=== PATIENT | male | born 1945 | race American Indian/Alaskan Native ===

== ENCOUNTER 2019-01-03 09:04 | Inpatient (IN) | payer MEDICARE ==
[2019-01-03 10:00] LABS: Eosinophils % (Auto) 0.4 % (0.0-4.3); Hematocrit 37.4 % (35.5-45.6); Hemoglobin 12.2 gm/dl (11.8-15.2); Lymphocytes # (Auto) 0.7 K/mm3 (1.2-5.4); Lymphocytes % (Auto) 20.5 % (13.4-35.0); Mean Corpuscular HGB Conc 33 % (32-34); Mean Corpuscular Volume 93 fl (84-94); Monocytes # (Auto) 0.3 K/mm3 (0.0-0.8); Monocytes % (Auto) 7.7 % (0.0-7.3); Platelet Count 224 K/mm3 (140-440); Red Blood Count 4.01 M/mm3 (3.65-5.03); Red Cell Distribution Width 18.2 % (13.2-15.2)
[2019-01-03 10:31] LABS: Alanine Aminotransferase 8 units/L (7-56); Albumin 3.9 g/dL (3.9-5); BUN/Creatinine Ratio 12; Blood Urea Nitrogen 21 mg/dL (9-20); Calcium 9.3 mg/dL (8.4-10.2); Hemolysis Index 0
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
--- NOTE | 2019-01-03 13:07 | Cat Scan Report ---
CT head without contrast INDICATION : weakness. Dizziness weakness. TECHNIQUE: Axial imaging performed from the skull apex through the skull base without the use of con trast. All CT scans at this location are performed using CT dose reduction for ALARA by means of aut omated exposure control. COMPARISON: None FINDINGS: Parenchyma: Bilateral basal ganglia chronic lacunar infarcts. No suspicious hypodensities. No mass o r mass effect. No hemorrhage. Ventricles: Ventricles are normal in size for age and appear symmetric. Soft tissues: Soft tissues including the orbits appear normal. Bones: No acute osseous abnormality. Sinuses: Sinuses and mastoid air cells are clear. IMPRESSION: No acute change. Chronic bilateral basal ganglia lacunar infarcts. Signer Name: Kwasi Cohen MD Signed: 01/03/2019 1:03 PM Workstation Name: [id number]
[2019-01-03 13:58] LABS: Bacteria,Urine 1+ /HPF (Negative); Bilirubin,Urine NEG (Negative); Blood,Urine NEG (Negative); Color,Urine Yellow (Yellow); Mucus,Urine FEW /HPF; RBC,Urine < 1.0 /HPF (0.0-6.0); Urobilinogen,Urine < 2.0 mg/dL (<2.0); WBC,Urine < 1.0 /HPF (0.0-6.0)
--- NOTE | 2019-01-03 18:30 | History and Physical Report ---
History of Present Illness Chief complaint: He just keeps getting weak History of present illness: 73 YO Male with CaP presents to ED for evaluation. Pt states that he was in his usual state of health and was driving his car and experienced an acute onset of blurred vision, dizziness, inability to focus, and inability to speak. Pt states that symptoms gradually improved and after several hours he felt better, but do es not feel normal. Pt transported to [facility] via private vehicle. Pt seen and evaluated in ED and found to have symptoms consistent with CVA. Pt is outside therapeutic window for TPA at time of my evaluation. Pt admitted to [facility] unit and initiated on CVA protocol. Neurology consulted. Pt denies fever, chills, CP, Palpitations, NVD, Trauma, productive cough, skin rash, recent ill contacts, vertigo, loss of bowel or bladder continence. No prior admission for review. All listed medication reconciled at time of admission. Past History Past Medical History: cancer Past Surgical History: No surgical history, Other (reviewed) Social history: . denies: smoking, alcohol abuse, prescription drug abuse Family history: no significant family history (reviewed) Medications and Allergies Allergies Allergy/AdvReac Type Severity Reaction Status Date / Time No Known Allergies Allergy Verified 01/03/19 09:09 Home Medications Medication Instructions Recorded Confirmed Last Taken Type Folic Acid [Folvite] 1 mg PO QDAY 01/03/19 01/03/19 01/03/19 History Furosemide [Lasix TAB] 40 mg PO QDAY 01/03/19 01/03/19 01/03/19 History Lisinopril [Zestril TAB] 40 mg PO QDAY 01/03/19 01/03/19 01/03/19 History NIFEdipine [Nifedipine ER] 60 mg PO QDAY 01/03/19 01/03/19 01/03/19 History Review of Systems Constitutional: no weight loss, no weight gain, no fever, no chills Ears, nose, mouth and throat: no ear pain, no ear discharge, no tinnitis, no decreased hearing, no nose pain, no nasal congestion, no nasal discharge Cardiovascular: no chest pain, no orthopnea, no palpitations, no rapid/irregular heart beat, no edema, no syncope Respiratory: no cough, no cough with sputum, no excessive sputum, no hemoptysis, no shortness of breath Gastrointestinal: no abdominal pain, no nausea, no vomiting, no diarrhea, no constipation, no change in bowel habits Genitourinary Male: no dysuria, no hematuria, no flank pain, no discharge, no urinary frequency, no urinary hesitancy, no nocturia, no incontinence Rectal: no pain, no incontinence, no bleeding Musculoskeletal: no neck stiffness, no neck pain, no shooting arm pain, no arm numbness/tingling, no low back pain, no leg numbness/tingling Integumentary: no rash, no pruritis, no redness, no sores, no wounds, no jaundice Neurological: no head injury, no transient paralysis, no paralysis, no weakness, no parathesias, no tingling, no seizures Psychiatric: no anxiety, no memory loss, no change in sleep habits, no sleep disturbances, no insomnia, no hypersomnia, no change in appetite, no change in libido Endocrine: no cold intolerance, no heat intolerance, no polyphagia, no excessive thirst, no polydipsia, no polyuria, no nocturia Hematologic/Lymphatic: no easy bruising, no easy bleeding Allergic/Immunologic: no urticaria, no allergic rhinitis, no wheezing Exam - Constitutional Vitals: Temp Pulse Resp BP Pulse Ox 97.8 F 93 H 16 128/74 98 01/03/19 09:15 01/03/19 09:15 01/03/19 09:15 01/03/19 09:15 01/03/19 09:15 General appearance: Present: mild distress - EENT Eyes: Present: PERRL ENT: hearing intact, clear oral mucosa - Neck Neck: Present: supple, normal ROM - Respiratory Respiratory effort: normal Respiratory: bilateral: CTA - Cardiovascular Heart Sounds: Present: S1 & S2. Absent: rub, click - Extremities Extremities: pulses symmetrical, No edema Peripheral Pulses: within normal limits - Abdominal General gastrointestinal: Present: soft, non-tender, non-distended, normal bowel sounds Male genitourinary: Present: normal - Integumentary Integumentary: Present: clear, warm, dry - Musculoskeletal Musculoskeletal: gait normal, strength equal bilaterally - Psychiatric Psychiatric: appropriate mood/affect, intact judgment & insight - Neurologic Neurologic: CNII-XII intact, moves all extremities Results - Labs CBC & Chem 7: 01/03/19 09:21 01/03/19 09:21 Labs: Abnormal lab results 01/03/19 01/03/19 Range/Units 09:21 09:21 WBC 3.5 L (4.5-11.0) K/mm3 RDW 18.2 H (13.2-15.2) % [place] % (Auto) 7.7 H (0.0-7.3) % Lymph # 0.7 L (1.2-5.4) K/mm3 Seg Neutrophils % 70.4 H (40.0-70.0) % Potassium 3.5 L (3.6-5.0) mmol/L Chloride 96.4 L (98-107) mmol/L BUN 21 H (9-20) mg/dL Creatinine 1.8 H (0.8-1.5) mg/dL Glucose 127 H (75-100) mg/dL Total Protein 8.9 H (6.3-8.2) g/dL Assessment and Plan - Patient Problems (1) CVA (cerebral vascular accident) Current Visit: Yes Status: Acute Qualifiers: Laterality of affected vessel: unspecified Plan to address problem: Stroke protocol: CT head, Carotid doppler, Echo, PT/OT/Speech therapy, lipid panel, statin therapy, swallow evaluation, anitplatelet therapy. (2) PARISA (acute kidney injury) Current Visit: Yes Status: Acute Plan to address problem: IVF resuscitation therapy, monitor uop q shift, supplemental oxygen, nephrology consulted in ED, avoid nephrotoxic agents. (3) DVT prophylaxis Current Visit: Yes Status: Acute Plan to address problem: SCD to BLE while in bed, Pt ambulatory
[2019-01-03] MEDS ORDERED: ZOFRAN IV PRN (18:40)
[2019-01-03] MEDS ORDERED: PHENERGAN PR PRN (18:40)
[2019-01-03] MEDS ORDERED: PROVENTIL IH PRN (18:40)
[2019-01-03] MEDS ORDERED: SODIUM CHLORIDE FLUSH SYRINGE 10 ML IV PRN (18:40)
[2019-01-03] MEDS ORDERED: TYLENOL PO PRN (18:40)
[2019-01-03] MEDS ORDERED: REGLAN PO PRN (18:40)
[2019-01-03] MEDS ORDERED: DULCOLAX PR PRN (18:40)
[2019-01-03] MEDS ORDERED: MILK OF MAGNESIA PO PRN (18:40)
[2019-01-03 21:42] LABS: Free T4 (Free Thyroxine) 1.07 ng/dL (0.76-1.46)
[2019-01-04 06:23] LABS: Chol/HDL Ratio 1.7 %
[2019-01-04] MEDS ORDERED: K-DUR PO NR ×3 (08:36→18:00)
[2019-01-04] MEDS ORDERED: FOLVITE PO SCH (10:00)
[2019-01-04] MEDS ORDERED: ASPIRIN PO SCH (10:00)
[2019-01-04] MEDS ORDERED: LASIX PO SCH (10:00)
[2019-01-04 10:50] VITALS: BP 154/93
[2019-01-04 10:55] LABS: BUN/Creatinine Ratio 12; Blood Urea Nitrogen 15 mg/dL (9-20); Calcium 8.9 mg/dL (8.4-10.2); Hemolysis Index 4
--- NOTE | 2019-01-04 11:17 | Discharge Summary ---
Providers - Providers Date of Admission: 01/03/19 18:40 Attending physician: SAADIA JAIME MD 01/03/19 18:40 Occupational Therapy Evaluate and Treat [CONS] Routine Comment: Reason For Exam: Neuro deficits Physical Therapy Evaluation and Treat [CONS] Routine Comment: Reason For Exam: Neuro deficits 01/03/19 18:41 Speech Therapy Evaluation and Treat [CONS] Routine Reason For Exam: swallow eval 01/03/19 20:31 Consult to Physician [CONS] Routine Comment: REJI Consulting Provider: PAO CARRION Physician Instructions: WAS NOTIFIED. Reason For Exam: cva 01/03/19 20:43 Consult to Physician [CONS] Routine Comment: REJI Consulting Provider: MIKE CAVAZOS Physician Instructions: WAS NOTIFIED. Reason For Exam: PARISA Primary care physician: [employer] Hospitalization Reason for admission: CVA Condition: Stable Hospital course: 73 YO Male with CaP presents to ED for evaluation. Pt states that he was in his usual state of health and was driving his car and experienced an acute onset of blurred vision, dizziness, inability to focus, and inability to speak. Pt states that symptoms gradually improved and after several hours he felt better, but does not feel normal. Pt transported to [facility] via private vehicle. Pt seen and evaluated in ED and found to have symptoms consistent with CVA. Pt is outside therapeutic window for TPA at time of my evaluation. Pt admitted to [facility] unit and initiated on CVA protocol. Neurology consulted. Pt denies fever, chills, CP, Palpitations, NVD, Trauma, productive cough, skin rash, recent ill contacts, vertigo, loss of bowel or bladder continence. No prior admission for review. All listed medication reconciled at time of admission. * Reviewed CT head with Neurology, Brain atrophy appropriate for age and few Chronic lacunar infarcts noted. Possible a subacute thalamic CVA also noted * ASA AND STATIN Started on the patient, family and patient advised * Patient with severe PTSD per spouse, now seeing a psychiatrist. * Renal function improved down to baseline. - Patient Problems (1) CVA (cerebral vascular accident) (2) PARISA (acute kidney injury) Secondary to vasomotor nephropathy (3) Hypokalemia- Replace (4) Transient Global Amnesia-Resolved Disposition: DC/TX-06 HOME UNDER HOME HL[facility] Time spent for discharge: 35 MINS Core Measure Documentation - Palliative Care Palliative Care/ Comfort Measures: Not Applicable - Core Measures Any of the following diagnoses?: none - Stroke Discharge Requirements Statin for LDL = or >70 mg/dl on DC: Yes Anticoag for atrial fib/atrial flutter: Not Applicable Antithrombotic for ischemic stroke: Yes Exam - Constitutional Vitals: Temp Pulse Resp BP Pulse Ox 97.8 F 70 20 154/93 98 01/04/19 08:19 01/04/19 08:45 01/04/19 08:19 01/04/19 08:45 01/04/19 08:45 General appearance: Present: no acute distress, well-nourished, other (ANXIOUS) - EENT Eyes: Present: PERRL, EOM intact ENT: hearing intact, other (MISSING DENTITION) - Neck Neck: Present: supple, normal ROM - Respiratory Respiratory effort: normal Respiratory: bilateral: CTA - Cardiovascular Rhythm: regular Heart Sounds: Present: S1 & S2. Absent: systolic murmur, diastolic murmur - Extremities Extremities: no ischemia, pulses intact, pulses symmetrical, No edema, normal temperature, normal color, Full ROM Peripheral Pulses: within normal limits - Abdominal General gastrointestinal: Present: soft, non-tender, non-distended, normal bowel sounds - Integumentary Integumentary: Present: clear, warm - Musculoskeletal Musculoskeletal: strength equal bilaterally - Psychiatric Psychiatric: appropriate mood/affect - Neurologic Neurologic: CNII-XII intact, moves all extremities - Allied Health Allied health notes reviewed: nursing Plan Activity: advance as tolerated, fall precautions Diet: low cholesterol Special Instructions: record daily BP diary Care Plan Goals: Encouraged to follow with PCP and also [facility]. Continue to follow with Pyschiatry Follow up with: ANNMARIE CALVILLO MD [Primary Care Provider] - 3-5 Days PAO CARRION MD [Staff Physician] - 7 Days Prescriptions: AtorvaSTATin [Lipitor] 40 mg PO QHS #30 tablet Aspirin 325 mg PO QDAY #30 tablet
--- NOTE | 2019-01-04 11:18 | Consultation ---
History of Present Illness Consult date: 01/04/19 History of present illness: patient seen and evaluated he clearly had episode of TGA transient global amnesia and he is hypertensive and has high lipid there is also panic disorder from ptsd CT multi small lacunar infarcts Past History Past Medical History: cancer Past Surgical History: No surgical history, Other (reviewed) Social history: . denies: smoking, alcohol abuse, prescription drug abuse Family history: no significant family history (reviewed) Medications and Allergies Allergies Allergy/AdvReac Type Severity Reaction Status Date / Time No Known Allergies Allergy Verified 01/03/19 09:09 Home Medications Medication Instructions Recorded Confirmed Last Taken Type Folic Acid [Folvite] 1 mg PO QDAY 01/03/19 01/03/19 01/03/19 History Furosemide [Lasix TAB] 40 mg PO QDAY 01/03/19 01/03/19 01/03/19 History Lisinopril [Zestril TAB] 40 mg PO QDAY 01/03/19 01/03/19 01/03/19 History NIFEdipine [Nifedipine ER] 60 mg PO QDAY 01/03/19 01/03/19 01/03/19 History Active Meds: Active Medications Acetaminophen (Tylenol) 650 mg PO Q4H PRN PRN Reason: Pain, Mild (1-3) Albuterol (Proventil) 2.5 mg IH Q3HRT PRN PRN Reason: Shortness Of Breath Aspirin (Aspirin) 325 mg PO QDAY [facility] Last Admin: 01/04/19 10:50 Dose: 325 mg Documented by: Atorvastatin Calcium (Lipitor) 40 mg PO QHS [facility] Last Admin: 01/03/19 22:05 Dose: 40 mg Documented by: Bisacodyl (Dulcolax) 10 mg [place] QDAY PRN PRN Reason: Constipation Folic Acid (Folvite) 1 mg PO QDAY [facility] Last Admin: 01/04/19 10:50 Dose: 1 mg Documented by: Furosemide (Lasix) 40 mg PO QDAY [facility] Last Admin: 01/04/19 10:49 Dose: 40 mg Documented by: Magnesium Sulfate 1 gm/ Sodium (Chloride) 52 mls @ 52 mls/hr IV ONCE ONE Stop: 01/04/19 11:58 Magnesium Hydroxide (Milk Of Magnesia) 30 ml PO Q4H PRN PRN Reason: Constipation Metoclopramide HCl (Reglan) 5 mg PO Q6H PRN PRN Reason: Nausea And Vomiting Ondansetron HCl (Zofran) 4 mg IV Q8H PRN PRN Reason: Nausea And Vomiting Potassium Chloride (K-Dur) 40 meq PO ONCE ONE Stop: 01/04/19 11:00 Promethazine HCl (Phenergan) 25 mg [place] Q6H PRN PRN Reason: Nausea And Vomiting Sodium Chloride (Sodium Chloride Flush Syringe 10 Ml) 10 ml IV PRN PRN PRN Reason: LINE FLUSH Physical Examination - Vital Signs Vital Signs: Vital Signs Temp Pulse Resp BP Pulse Ox 97.8 F 93 H 16 128/74 98 01/03/19 09:15 01/03/19 09:15 01/03/19 09:15 01/03/19 09:15 01/03/19 09:15 Results - Laboratory Findings CBC and BMP: 01/03/19 09:21 01/04/19 10:16 Abnormal Lab Findings: Abnormal Labs 01/03/19 01/03/19 01/04/19 09:21 09:21 04:54 WBC 3.5 L RDW 18.2 H [place] % (Auto) 7.7 H Lymph # 0.7 L Seg Neutrophils % 70.4 H Potassium 3.5 L Chloride 96.4 L BUN 21 H Creatinine 1.8 H Glucose 127 H Magnesium Total Protein 8.9 H HDL Cholesterol 111 H 01/04/19 01/04/19 10:16 10:16 WBC RDW [place] % (Auto) Lymph # Seg Neutrophils % Potassium 3.4 L Chloride BUN Creatinine Glucose Magnesium 1.50 L Total Protein HDL Cholesterol
[2019-01-04] MEDS ORDERED: MAGNESIUM SULFATE 1 GM in NACL 0.9% 50 ML IV ONE (11:30)
--- NOTE | 2019-01-04 11:42 | Consultation ---
History of Present Illness - Reason for Consult Consult date: 01/11/19 acute renal failure, hypokalemia - History of Present Illness The patient is a 73 YO male with history significant for Hypertension, Ca Prostate, HLD, PTSD and Etoh abuse who presented to [facility] ED yesterday with c/o transient global amnesia. Pt states that he was driving his car and experienced an acute onset of dizziness, blurred vision, inability to focus, and difficulty in speaking. His symptoms gradually improved but not completely back to normal. Pt also reports 3 weeks h/o decreased appetite, poor PO intake and 10-15 lbs weight loss. He denies N, V, D, abd pain, CP, sob, fever, chills, rash, leg swelling or syncope. He was admitted with suspected CVA / TIA. Creatinine was 1.8 on admission. Nephrology was consulted for further evaluation. Past History Past Medical History: cancer, hypertension, hyperlipidemia, other (Etoh abuse) Past Surgical History: No surgical history, Other (reviewed) Social history: . denies: smoking, alcohol abuse, prescription drug abuse Family history: no significant family history (reviewed) Medications and Allergies Allergies Allergy/AdvReac Type Severity Reaction Status Date / Time No Known Allergies Allergy Verified 01/03/19 09:09 Home Medications Medication Instructions Recorded Confirmed Last Taken Type Folic Acid [Folvite] 1 mg PO QDAY 01/03/19 01/03/19 01/03/19 History Furosemide [Lasix TAB] 40 mg PO QDAY 01/03/19 01/03/19 01/03/19 History Lisinopril [Zestril TAB] 40 mg PO QDAY 01/03/19 01/03/19 01/03/19 History NIFEdipine [Nifedipine ER] 60 mg PO QDAY 01/03/19 01/03/19 01/03/19 History Aspirin 325 mg PO QDAY #30 tablet 01/04/19 Unknown Rx AtorvaSTATin [Lipitor] 40 mg PO QHS #30 tablet 01/04/19 Unknown Rx Active Meds: Active Medications Acetaminophen (Tylenol) 650 mg PO Q4H PRN PRN Reason: Pain, Mild (1-3) Albuterol (Proventil) 2.5 mg IH Q3HRT PRN PRN Reason: Shortness Of Breath Aspirin (Aspirin) 325 mg PO QDAY [facility] Last Admin: 01/04/19 10:50 Dose: 325 mg Documented by: Atorvastatin Calcium (Lipitor) 40 mg PO QHS [facility] Last Admin: 01/03/19 22:05 Dose: 40 mg Documented by: Bisacodyl (Dulcolax) 10 mg [place] QDAY PRN PRN Reason: Constipation Folic Acid (Folvite) 1 mg PO QDAY [facility] Last Admin: 01/04/19 10:50 Dose: 1 mg Documented by: Furosemide (Lasix) 40 mg PO QDAY [facility] Last Admin: 01/04/19 10:49 Dose: 40 mg Documented by: Magnesium Sulfate 1 gm/ Sodium (Chloride) 52 mls @ 52 mls/hr IV ONCE ONE Stop: 01/04/19 12:29 Magnesium Hydroxide (Milk Of Magnesia) 30 ml PO Q4H PRN PRN Reason: Constipation Metoclopramide HCl (Reglan) 5 mg PO Q6H PRN PRN Reason: Nausea And Vomiting Ondansetron HCl (Zofran) 4 mg IV Q8H PRN PRN Reason: Nausea And Vomiting Potassium Chloride (K-Dur) 40 meq PO ONCE NR Stop: 01/04/19 16:00 Promethazine HCl (Phenergan) 25 mg [place] Q6H PRN PRN Reason: Nausea And Vomiting Sodium Chloride (Sodium Chloride Flush Syringe 10 Ml) 10 ml IV PRN PRN PRN Reason: LINE FLUSH Review of Systems Constitutional: weight loss, anorexia, poor appetite, no weight gain, no fever, no chills, no weakness Cardiovascular: lightheadedness, high blood pressure, no chest pain, no orthopnea, no edema, no syncope, no shortness of breath, no leg edema, no decreased exercise tolerance Respiratory: no cough, no hemoptysis, no shortness of breath, no dyspnea on exertion, no sleep apnea, no home oxygen Gastrointestinal: no abdominal pain, no nausea, no vomiting, no diarrhea, no melena, no hematochezia Genitourinary Male: no dysuria, no hematuria Rectal: no bleeding Integumentary: no rash, no wounds Neurological: change in speech, change in mentation, memory loss, no paralysis Psychiatric: memory loss Exam - Vital Signs Vital signs: Vital Signs Temp Pulse Resp BP Pulse Ox 97.8 F 93 H 16 128/74 98 01/03/19 09:15 01/03/19 09:15 01/03/19 09:15 01/03/19 09:15 01/03/19 09:15 - General Appearance General appearance: well-developed, well-nourished, appears stated age, other (not in distress) EENT: ATNC, PERRL, mucous membranes moist, hearing intact, vision intact Neck: Present: neck supple, trachea midline Respiratory: Clear to Ascultation Heart: regular, S1S2, no murmurs Gastrointestinal: Present: normoactive bowel sounds. Absent: tenderness, distended Integumentary: no rash, warm and dry Neurologic: no focal deficit, no asterixis, alert and oriented x3 Musculoskeletal: Present: other (no edema) Psychiatric: cooperative Results - Lab Results 01/03/19 09:21 01/04/19 10:16 Most recent lab results Calcium 8.9 mg/dL (8.4-10.2) 01/04/19 10:16 Magnesium 1.50 mg/dL (1.7-2.3) L 01/04/19 10:16 Assessment and Plan 1. Acute kidney injury: Likley Vasomotor PARISA in the setting of volume depletion. Renal function is better. Baseline renal function is unknown. Encouraged PO fluids. Monitor renal function. Avoid nephrotoxic agents. Meds dosage based on GFR. 2. FEN: Hypokalemia, replete K. Replete Mg. Monitor lytes. 3. Transient global amnesia: Resolved. 4. Etoh abuse: Counseled. 5. Hypertension: Monitor BP. F/u with me in 2 weeks.
--- NOTE | 2019-01-04 13:07 | Consultation ---
HISTORY OF PRESENT ILLNESS: This is a 73-year-old black male who presents with episode of transient global amnesia, began to feel peculiar, could not orient himself. His thinking was off. He presented to the Emergency Room and when he was assessed, he was noted to be confused. I have reviewed his CT scan of the head. It shows multi-infarct state, very small lacunar infarcts throughout the brain and he clearly has had an additional, probably thalamic ischemia and I am recommending that his blood pressure be treated, lower his lipids. He may go at this point. His neurological examination currently is normal. Memory intact. I did talk to him extensively about his PTSD, interesting disorder and clearly he is receiving correct treatment for this. I plan to follow up with the patient in the office. I would maintain his blood pressure with diastolics of less than 90 and his systolic blood pressure less than 140 as a goal. I did speak with his at length. I told her I felt that this is transient global amnesia. His neurological examination is back to normal at the present time. It is okay for him to go home. JOB# [id number] EDSON/KELLY
--- NOTE | 2019-01-04 17:16 | Magnetic Resonance Report ---
MR brain wo con INDICATION / CLINICAL INFORMATION: 73 years Male; CVA. TECHNIQUE: Multiplanar, multisequence MR images of the brain were obtained. COMPARISON: CT - 01/03/2019 FINDINGS: BRAIN / INTRACRANIAL CONTENTS: Mild to moderate cerebral and cerebellar atrophy. Mild degree of hippocampal atrophy suggested bilate rally. There are mild to moderate areas of increased signal intensity on FLAIR imaging in the white matter o f the cerebral hemispheres. These are nonspecific findings and may be related to microangiopathy (hyp ertension, diabetes, atherosclerosis), given the patient's age. Otherwise, no acute ischemia, acute hemorrhage, or hydrocephalus. CRANIOCERVICAL JUNCTION: No significant abnormality. VASCULAR FLOW-VOIDS: No significant abnormality. ORBITS: No significant abnormality of visualized orbits. SINUSES / MASTOIDS: Minimal mucosal thickening seen in the ethmoids. Small mucus tension cyst seen in the left maxillary antrum. ADDITIONAL FINDINGS: None. IMPRESSION: 1. No focal mass, hemorrhage, hydrocephalus, or acute ischemia. Signer Name: Juliocesar Lau MD, III Signed: 01/04/2019 5:12 PM Workstation Name: [id number]
== END 2019-01-04 18:10 | disposition home health service (06) | DRG 64 ==
LOC: ED 09:04 → 2B-ACE 18:40
PROVIDERS: ADMIT Internal Medicine; ATTEND Internal Medicine
DX: I63.9 Cerebral infarction, unspecified (principal); N17.0 Acute kidney failure with tubular necrosis; E87.5 Hyperkalemia; G45.4 Transient global amnesia; I10 Essential (primary) hypertension; F10.10 Alcohol abuse, uncomplicated; Z71.41 Alcohol abuse counseling and surveillance of alcoholic; Z85.46 Personal history of malignant neoplasm of prostate; Z79.899 Other long term (current) drug therapy; Z72.89 Other problems related to lifestyle
CPT/HCPCS: 36415; 70450; 70551; 71045; 80048; 80053; 80061; 81001; 82962; 83735; 84439; 84443; 84484; 85025; 93005; 93010; 93306; 94640; G0378; A9270-GY; J3475

== ENCOUNTER 2020-08-24 11:12 | Emergency (ER) | payer MEDICARE ==
[2020-08-24] MEDS ORDERED: SODIUM CHLORIDE 0.9% 1000 ML 1,000 ML IV ONE (12:16)
--- NOTE | 2020-08-24 12:20 | Event Note ---
ED Screening Note Date of service: 08/24/20 Time: 12:17 ED Screening Note: Patient was brought in by with concerns for decreased appetite, generalized weakness, and weight loss over the past 1 to 2 months and she states that in the past 2 to 3 weeks has been complaining of difficulty swallowing. Past medical history significant for hypertension, gout, generalized tremors and is concerned that he may be developing dementia even though his primary care doctor has not officially diagnosed him with it. He states that he has been seeing his primary care doctor over the past 1 to 2 months but states that the primary care doctor just prescribed him pills and is not really doing anything about his symptoms. This initial assessment/diagnostic orders/clinical plan/treatment(s) is/are subject to change based on patients health status, clinical progression and re- assessment by fellow clinical providers in the ED. Further treatment and workup at subsequent clinical providers discretion. Patient/guardian urged not to elope from the ED as their condition may be serious if not clinically assessed and managed. Initial orders include: Labs/EKG/chest x-ray
[2020-08-24 12:40] LABS: Basophils % (Auto) 0.7 % (0.0-1.8); Eosinophils % (Auto) 0.3 % (0.0-4.3); Hematocrit 37.7 % (35.5-45.6); Hemoglobin 12.5 gm/dl (11.8-15.2); Lymphocytes # (Auto) 1.6 K/mm3 (1.2-5.4); Lymphocytes % (Auto) 29.8 % (13.4-35.0); Mean Corpuscular HGB Conc 33 % (32-34); Mean Corpuscular Volume 93 fl (84-94); Monocytes # (Auto) 0.5 K/mm3 (0.0-0.8); Monocytes % (Auto) 9.5 % (0.0-7.3); Platelet Count 233 K/mm3 (140-440); Red Blood Count 4.05 M/mm3 (3.65-5.03); Red Cell Distribution Width 17.3 % (13.2-15.2)
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
[2020-08-24 13:06] LABS: Albumin 3.8 g/dL (3.9-5); Calcium 10.1 mg/dL (8.4-10.2)
[2020-08-24 13:18] LABS: Chol/HDL Ratio 2.03 %
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
[2020-08-24 14:28] LABS: INR 0.94 (0.87-1.13)
[2020-08-24 14:29] LABS: Partial Thromboplastin Time 25.3 Sec. (24.2-36.6)
[2020-08-24 14:44] LABS: Creatine Kinase MB 4.6 ng/mL (0.0-4.0)
--- NOTE | 2020-08-24 14:48 | Cat Scan Report ---
CT HEAD WITHOUT CONTRAST HISTORY: dizziness, difficulty walking. TECHNIQUE: Axial imaging performed from the skull apex through the skull base without the use of con trast. All CT scans at this location are performed using CT dose reduction for ALARA by means of aut omated exposure control. COMPARISON: 03/05/2019 FINDINGS: Parenchyma: No acute intracranial hemorrhage or parenchymal abnormality. There is mild diffuse volum e loss. Mild hypoattenuation throughout the white matter is noted and consistent with chronic microv ascular ischemic disease. Ventricles: There is mild diffuse brain atrophy with commensurate ventricular enlargement which is l ikely age appropriate. Soft tissues: Soft tissues including the orbits appear normal. Bones: No acute osseous abnormality. Sinuses: Sinuses and mastoid air cells are clear. IMPRESSION: No acute abnormality. Chronic findings as described which are slightly advanced since . Signer Name: Jacob Witt Jr, MD Signed: 08/24/2020 2:43 PM Workstation Name: [id number]
[2020-08-24 16:15] LABS: Bilirubin,Urine NEG (Negative); Blood,Urine SM (Negative); Color,Urine Yellow (Yellow); Hyaline Casts,Urine 1 /LPF; Mucus,Urine FEW /HPF
[2020-08-24 16:58] VITALS: BP 131/86
--- NOTE | 2020-09-02 10:44 | Electrocardiograph Report ---
[facility] Test Date: 2020-08-24 Test Time: 12:25:03 Pat Name: DIETER JACQUES Department: Room: Gender: M Pacu Nurse: MANFRED : 1945 Requested By: CHARLOTTE HANNA Order Number: [id number] Reading MD: John Hollingsworth Measurements Intervals [place] Rate: 59 P: 33 [place]: 172 QRS: -47 QRSD: 89 T: 159 QT: 478 QTc: 473 Interpretive Statements Sinus bradycardia Left axis deviation Nonspecific repol abnormality, diffuse leads No previous ECG available for comparison Electronically Signed On 09-02-2020 10:44:08 EDT by John Hollingsworth
== END 2020-08-24 16:59 | disposition home or self-care (01) ==
LOC: ED 11:12
DX: I12.9 Hypertensive chronic kidney disease with stage 1 through stage 4 chronic kidney disease, or unspecified chronic kidney disease (principal); N18.2 Chronic kidney disease, stage 2 (mild); F03.90 Unspecified dementia, unspecified severity, without behavioral disturbance, psychotic disturbance, mood disturbance, and anxiety; R53.1 Weakness; R13.10 Dysphagia, unspecified; R63.4 Abnormal weight loss; Z68.21 Body mass index [BMI] 21.0-21.9, adult; Z87.891 Personal history of nicotine dependence; Z79.899 Other long term (current) drug therapy
CPT/HCPCS: 36415; 70450; 71046; 80053; 80061; 81001; 82550; 82553; 83735; 83880; 84484; 85025; 85610; 85730; 87086; 93005; 96360; 99284; J7030